=== PATIENT | male | born 1995 | race American Indian/Alaskan Native ===

== ENCOUNTER 2017-07-06 13:07 | Emergency (ER) | payer SELFPAY ==
[2017-07-06 13:35] VITALS: BP 137/90
[2017-07-06] MEDS ORDERED: NACL 0.9% 1000 ML 1,000 ML IV ONE (13:35)
[2017-07-06 14:10] LABS: Hematocrit 51.8 % (35.5-45.6); Hemoglobin 16.5 gm/dl (11.8-15.2); Mean Corpuscular HGB Conc 32 % (32-34); Red Blood Count 7.47 M/mm3 (3.65-5.03); Red Cell Distribution Width 14.7 % (13.2-15.2)
[2017-07-06 14:12] LABS: Mean Corpuscular Volume 69 fl (84-94)
[2017-07-06 14:13] LABS: Mean Corpuscular Hemoglobin 22 pg (28-32)
[2017-07-06 14:22] LABS: INR 0.94 (0.87-1.13)
[2017-07-06 14:23] LABS: Partial Thromboplastin Time 25.5 Sec. (24.2-36.6)
[2017-07-06 14:30] LABS: Alanine Aminotransferase 25 units/L (7-56); Albumin 4.1 g/dL (3.9-5); BUN/Creatinine Ratio 16; Blood Urea Nitrogen 18 mg/dL (9-20); Calcium 9.6 mg/dL (8.4-10.2); Hemolysis Index 0; Lipase 14 units/L (13-60)
[2017-07-06 14:39] LABS: Anisocytosis 1+; Band Neutrophils # (Manual) 2.7 K/mm3; Basophils % (Manual) 0 % (0.0-1.8); Eosinophils % (Manual) 0 % (0.0-4.3); Giant Platelets Few; Myelocytes # (Manual) 0.1 K/mm3; Poikilocytosis 1+; Total Cells Counted 100
[2017-07-06 14:40] LABS: Platelet Count 181 K/mm3 (140-440)
== END 2017-07-07 01:30 | disposition left against medical advice (07) ==
LOC: ED 13:07
DX: R10.9 Unspecified abdominal pain (principal); Z53.21 Procedure and treatment not carried out due to patient leaving prior to being seen by health care provider
CPT/HCPCS: 36415; 80053; 83690; 85007; 85025; 85610; 85730; 86850; 86900; 86901; 93005; 93010